=== PATIENT | female | born 1995 | race Caucasian/White ===

== ENCOUNTER → 2017-01-15 | Outpatient (CLI) | payer MEDICAID | LOC: CIMAGING 13:17 | PROVIDERS: ATTEND Family Medicine | DX: N63 Unspecified lump in breast (principal) | CPT/HCPCS: 76641-PO ==

== ENCOUNTER 2017-10-30 07:31 | Emergency (ER) | payer MEDICAID ==
[2017-10-30] MEDS ORDERED: NS 1,000 ML IV ONE ×2 (07:53→09:07)
--- NOTE | 2017-10-30 08:04 | EDPHY ---
H & P Stated Complaint: UTI SYMPTOMS, RUQ pain, low back pain, 3 days Time Seen by Provider: 10/30/17 07:46 HPI/ROS: 21-year-old female presents complaining of right flank pain rating to right lower abdomen, decreased urination, some urgency 2 year knee as well as difficulty expelling urine. No fevers no chills, no vomiting, no diarrhea no constipation. Review of systems As per HPI General no fever no chills no weakness HEENT no eye pain no eye discharge. No eye redness, no sore throat Respiratory no cough, no shortness of breath Cardiac no chest pain, no peripheral edema GI positive abdominal pain, no diarrhea, no constipation, no nausea, no vomiting positive flank pain, no hematuria, positive dysuria Musculoskeletal no myalgias, no joint pain Heme no easy bruising, no easy bleeding Endo no polyuria, no polydipsia Skin no rashes, no pruritus Neuro no syncope, no dizziness, no headaches Psych is no suicidal ideation, no homicidal ideation Source: Patient, Family - Personal History LMP (Females 10-55): 15-21 Days Ago - Medical/Surgical History Hx Asthma: No Hx Chronic Respiratory Disease: No Hx Diabetes: No Hx Cardiac Disease: No Hx Renal Disease: No Hx Cirrhosis: No Hx Alcoholism: No Hx HIV/AIDS: No Hx Splenectomy or Spleen Trauma: No Other PMH: UTI's - Family History Significant Family History: No pertinent family hx - Social History Smoking Status: Current every day smoker Alcohol Use: None Drug Use: None - Physical Exam Exam: 21-year-old female alert and oriented no acute distress nontoxic appearance, afebrile HEENT atraumatic normocephalic, extraocular muscles intact, anicteric Oropharynx negative for erythema negative exudate, tolerating her own secretions Neck supple no meningismus Lungs clear to auscultation bilaterally Heart regular rate and rhythm without murmur rub or gallop Abdomen nondistended normoactive bowel sounds , mild right lower quadrant tenderness, no guarding no rebound no pulsatile mass Back positive right CVA tenderness, no step-offs, no spinal tenderness Extremities no cyanosis clubbing or edema Neuro alert and oriented, no focal deficits Constitutional: Initial Vital Signs Temperature (C) 36.8 C 10/30/17 07:43 Heart Rate 75 10/30/17 07:43 Respiratory Rate 16 10/30/17 07:43 Blood Pressure 123/73 H 10/30/17 07:43 O2 Sat (%) 98 10/30/17 07:43 O2 Delivery Mode Room Air Allergies/Adverse Reactions: No Known Allergies Allergy (Unverified 10/30/17 07:49) Home Medications: Medication Instructions Recorded Cephalexin 500 mg PO BID #14 tablet 10/30/17 Medical Decision Making - Diagnostics Imaging Results: Imaging Impressions Abdomen/Pelvis CT 10/30/17 07:55 Impression: 1. No evidence for renal obstruction or lithiasis. 2. Small amount of pelvic free fluid. 3. Inability to exclude appendicitis. 4. Cholelithiasis versus gallbladder sludge. 5. Left labial thickening. Results called and discussed with Neva Zamora MD, at 10/30/2017 9:01 Attention: This CT examination is specifically designed to evaluate patients who are clinically suspected of having acute obstructive uropathy. This examination does not use radiographic contrast, and as such, provides only a limited evaluation of the abdomen, pelvis and retroperitoneum. If there is further clinical suspicion for pathological conditions other than obstructive uropathy, a complete CT evaluation of the abdomen and pelvis utilizing intravenous, oral, and rectal contrast should be considered. General information for patients regarding this examination can be found at [email or web address]. If you have questions or comments about this report, please contact me at (hospital) or [phone] (cell). Abdomen Ultrasound 10/30/17 09:51 Impression: Normal study. Specifically normal gallbladder and right kidney. 2. Ultrasound Pelvis Complete (Transabdominal and Endovaginal) Including Duplex/ Doppler Imaging History: evaluate ovaries, uterus free fluid noted on CT scan pt with right sided flank and right abdominal pain, dysuria Comparison: CT done earlier at 8:44 AM Technique: Transabdominal and endovaginal ultrasound images were obtained. Endovaginal images obtained for better evaluation of the uterine myometrium and adnexa. Duplex/Doppler imaging of adnexa to evaluate for ovarian torsion and vascular masses. Findings: Uterus measures 6.2 cm x 2.9 cm x 4.3 cm. The endometrium is consistent with the proliferative phase. Endometrial thickness is 9.6 mm. No uterine leiomyomata. Right ovary measures 2.6 cm x 2.6 cm x 1.8 cm. Left ovary measures 1.9 cm x 2.6 cm x 2.4 cm. No adnexal masses. There is a small amount of free fluid in the pelvis. Color Doppler/duplex and spectral flow to both ovaries without torsion. Resistive index = 0.66 in the right ovary and 0.62 in the left ovary. Impression: Normal ultrasound pelvis. Results called to Dr. Zamora at 10:50 AM. Pelvic/Renal Ultrasound 10/30/17 09:53 Impression: Normal study. Specifically normal gallbladder and right kidney. 2. Ultrasound Pelvis Complete (Transabdominal and Endovaginal) Including Duplex/ Doppler Imaging History: evaluate ovaries, uterus free fluid noted on CT scan pt with right sided flank and right abdominal pain, dysuria Comparison: CT done earlier at 8:44 AM Technique: Transabdominal and endovaginal ultrasound images were obtained. Endovaginal images obtained for better evaluation of the uterine myometrium and adnexa. Duplex/Doppler imaging of adnexa to evaluate for ovarian torsion and vascular masses. Findings: Uterus measures 6.2 cm x 2.9 cm x 4.3 cm. The endometrium is consistent with the proliferative phase. Endometrial thickness is 9.6 mm. No uterine leiomyomata. Right ovary measures 2.6 cm x 2.6 cm x 1.8 cm. Left ovary measures 1.9 cm x 2.6 cm x 2.4 cm. No adnexal masses. There is a small amount of free fluid in the pelvis. Color Doppler/duplex and spectral flow to both ovaries without torsion. Resistive index = 0.66 in the right ovary and 0.62 in the left ovary. Impression: Normal ultrasound pelvis. Results called to Dr. Zamora at 10:50 AM. ED Course/Re-evaluation: Patient seen and evaluated for right flank pain, right lower quadrant abdominal tenderness as well as dysuria. Urinalysis positive for blood positive leukocytes, negative nitrite UA and urine culture will be sent to [facility] CBC wnl BMP low potassium, discussed replacing with patient CT abdomen and pelvis to rule out obstructive uropathy no obstruction,small amt free fluid in pelvis, possible gb sludge us ruq wnl , gb nml us pelvis no acute pathology IV established Patient given 1 L normal saline and toradol 30 mg ivp with complete relief of pain Impression UTI, dysuria Small amt of free fluid on ct and ultrasound may represent a ruptured ovarian cyst Plan f/u pcp Differential Diagnosis: Differential diagnosis considered but not limited to: Urinary tract infection, ruptured ovarian cyst, appendicitis, cholecystitis, ureterolithiasis, kidney stone, hydronephrosis, pyelonephritis - Data Points Laboratory Results: 10/30/17 10/30/17 09:20 08:10 POC Sodium 141 mEq/L mEq/L (135-145) POC Potassium 3.1 mEq/L L mEq/L (3.3-5.0) POC Chloride 104.0 mEq/L mEq/L (97-110) POC Total CO2 23 mEq/L mEq/L (22-31) POC BUN 7 mg/dL mg/dL (7-23) POC Creatinine 0.9 mg/dL mg/dL (0.6-1.0) POC Glucose 104 mg/dL H mg/dL (70-100) POC Calcium 10.0 mg/dL mg/dL (8.5-10.4) Urine Color YELLOW Urine Appearance HAZY Urine pH 7.0 (5.0-7.5) Ur Specific [place] 1.014 (1.002-1.030) Urine Protein 2+ H (NEGATIVE) Urine Ketones NEGATIVE (NEGATIVE) Urine Blood 2+ H (NEGATIVE) Urine Nitrate NEGATIVE (NEGATIVE) Urine Bilirubin NEGATIVE (NEGATIVE) Urine Urobilinogen NEGATIVE EU EU (0.2-1.0) Ur Leukocyte Esterase TRACE H (NEGATIVE) Urine RBC 50-182 /hpf H /hpf (0-3) Urine WBC 50-182 /hpf H /hpf (0-3) Ur Epithelial Cells TRACE /lpf /lpf (NONE-1+) Urine Mucus TRACE /lpf /lpf (NONE-1+) Urine Glucose NEGATIVE (NEGATIVE) Medications Given: Discontinued Medications Sodium Chloride (Ns) 1,000 mls @ 0 mls/hr IV ONCE ONE PRN Reason: Wide Open Stop: 10/30/17 07:54 Last Admin: 10/30/17 08:09 Dose: 1,000 mls Sodium Chloride (Ns) 1,000 mls @ 0 mls/hr IV ONCE ONE PRN Reason: Wide Open Stop: 10/30/17 09:08 Last Admin: 10/30/17 09:08 Dose: 1,000 mls Ketorolac Tromethamine (Toradol) 30 mg IVP EDNOW ONE Stop: 10/30/17 08:26 Last Admin: 10/30/17 08:36 Dose: 30 mg Point of Care Test Results: CBC CBC Collection Date 10/30/17 CBC Collection Time 08:03 WBC 8 RBC 5.19 HGB 16.6 HCT 47.3 PLT 153 Neut # 5.2 Neut 65.5 LYMPH # 2.2 LYMPH 27.4 Other WBC # 0.6 Other WBC 7.1 MCV 91.1 Chemistry 10/30/17 08:10 POC Sodium 141 mEq/L mEq/L (135-145) POC Potassium 3.1 mEq/L L mEq/L (3.3-5.0) POC Chloride 104.0 mEq/L mEq/L (97-110) POC Total CO2 23 mEq/L mEq/L (22-31) POC BUN 7 mg/dL mg/dL (7-23) POC Creatinine 0.9 mg/dL mg/dL (0.6-1.0) POC Glucose 104 mg/dL H mg/dL (70-100) POC Calcium 10.0 mg/dL mg/dL (8.5-10.4) Basic Metabolic Panel BMP Collection Date 10/30/17 BMP Collection Time 08:03 Urine Collection Date 10/30/17 Collection Time 07:40 HCG Results Negative Urine Dip Collection Date 10/30/17 Collection Time 07:40 Specific [place] (1.002-1.030) 1.020 PH (5.0-7.5) 5.0 Leukocytes (Negative) 1+ Nitrites (Negative) Negative Protein (Negative) 3+ Glucose (Negative) Negative Ketones (Negative) Negative Urobilnogen (0.2-1.0 EU) 0.2 Bilirubin (Negative) Negative Blood (Negative) 3+ Departure - Departure Disposition: Home, Routine, Self-Care Clinical Impression: Dysuria, Urinary tract infection Condition: Good Instructions: Urinary Tract Infection in Women (ED) Additional Instructions: Drink more water, up to 8 glasses per day. Return for high fever, vomiting or severe pain. Follow up with your primary clinic if you continue to have symptoms. Take antibiotic twice a day for 7 days. Referrals: NONE *PRIMARY CARE P,. [Primary Care Provider] - As per Instructions Prescriptions: Cephalexin 500 mg PO BID #14 tablet
[2017-10-30] MEDS ORDERED: KETOROLAC 30 MG/1 ML SDV IVP ONE (08:25)
[2017-10-30 11:12] VITALS: BP 107/69
== END 2017-10-30 11:08 | disposition home or self-care (01) ==
LOC: CED 07:31
DX: N39.0 Urinary tract infection, site not specified (principal); B96.89 Other specified bacterial agents as the cause of diseases classified elsewhere; F17.200 Nicotine dependence, unspecified, uncomplicated
CPT/HCPCS: 74176-PO; 76705-PO; 76856-PO; 80048-PO; 96374; J1885

== ENCOUNTER → 2018-04-02 | Outpatient (CLI) | payer MEDICAID | LOC: CIMAGING 16:38 | PROVIDERS: ATTEND Family Medicine | DX: N83.202 Unspecified ovarian cyst, left side (principal) | CPT/HCPCS: 76856-PO ==

== ENCOUNTER → 2018-10-22 | Outpatient (CLI) | payer MEDICAID | LOC: BRMIMAGING 13:16 ==